=== PATIENT | female | born 1985 | race Caucasian/White ===

== ENCOUNTER 2016-10-02 16:16 | Emergency (ER) | payer OTHER ==
--- NOTE | 2016-10-03 07:08 | ER ---
ADMIT: 10/02/2016 RM/LOC: ER MR#: [id number] [address] [facility] [address], [place] [id number] [place] [address] Emergency Room Report SEX: F AGE: 31 : 1985 DATE: 10/02/2016 The patient is a 31-year-old female, status post right schwannoma removal on September 12, complaining of escalating headache without fevers, chills, nausea, or vomiting. MRI showed fluid collection postoperatively that could have been related to CSF leak. Case was discussed with on-call neurosurgeon at change of shift, who recommended LP returned clear CSF with elevated protein of 124, glucose of 36, wbc of 598, 70% mononuclear wbc's, 30% polymorphonuclear wbc's. Gram stain showed no bacteria. Culture pending. Remainder of sepsis protocol all within normal limits with no abnormal inflammatory markers. The patient was covered with vancomycin 1 g IV piggyback and ceftriaxone 2 g IV piggyback. Discussed case with Dr. Butterfield after CSF results were known. Recommended symptomatic care only and follow up Dr. Joseph's clinic this week. The patient was in agreement with the above plan, has hydrocodone for pain control, will return to ED if fevers, chills, or severe headache. PROCEDURE: Aseptic diagnostic spinal tap, L4 interspace, 24-gauge pencil- point needle with 19-gauge introducer returning clear fluid 10 mL. The patient tolerated procedure well. Warren Curran MD/ justyn JOB #: [id number] CC: Justin Rawls MD, Attending Physician UNKNOWN, Family Physician Roberto Joseph MD
--- NOTE | 2016-11-04 17:09 | ER ---
ADMIT: 10/02/2016 RM/LOC: ER [facility] MR#: [id number] [address] [facility] [address] [place] [id number] [place] [address] Emergency Room Report SEX: F AGE: 31 : 1985 DATE: 10/02/2016 ADDENDUM: This patient on the 12 of September had a schwannoma removed. She seemed to be doing well except for a week ago she started having pain in her head. She states it is constantly there but sometimes it will throb and be very severe for a few minutes or seconds. She denies any fevers. She recently had the jerri removed, and she feels like the area around the incision site is swelling. PHYSICAL EXAMINATION: GENERAL: She answers questions and speaks appropriately. She does not hear and the only way to communicate with her is the talking into her phone and then she reads what you spoke and can speak back to you. She points to the area of pain being in both temples in the top of her head and she is tender along the incision line. The area of her incision does feel swollen and fluctuant, but it is non red. HEENT: Posterior pharynx is benign. Oral mucosa is dry. Nares clear. NECK: Supple. HEART: Regular rate and rhythm. LUNGS: Clear to auscultation. ABDOMEN: Soft. NEURO: She answers questions and speaks appropriately, is oriented x3. Strength is equal bilaterally in both the upper and lower extremities. Sensation is intact in both the upper and lower extremities. EMERGENCY DEPARTMENT COURSE: CBC and BMP were normal. Sepsis protocol was ordered on her CAT scan, showed some concern for having a small CSF leak. I did speak with a Neurosurgery resident at and he felt that LP was needed to rule out a meningitis. He felt if her markers were elevated and she had signs of meningitis, she should be started prophylactically on medication and transferred to their facility. However, if it was deemed that she did not have meningitis, then he would like her to follow up in clinic and he will speak with her neurosurgeon and they will call her with the appointment for this week. I did consult with Dr. Mead concerning treatment of this patient. He will perform the LP and then follow up with the results. Please see his dictation for further treatment. LEEANN Jones / Justin Rawls MD / modl JOB #: [id number] CC: Justin Rawls MD, Attending Physician
== END 2016-10-03 03:51 | disposition home or self-care (01) ==
LOC: ER 16:16
PROC: 009U3ZX Drainage of Spinal Canal, Percutaneous Approach, Diagnostic (ICD-10-PCS; principal; 2016-10-02)
DX: G89.18 Other acute postprocedural pain (principal); R22.0 Localized swelling, mass and lump, head; R51 Headache; Z79.899 Other long term (current) drug therapy